=== PATIENT | male | born 1985 | race Caucasian/White ===

== ENCOUNTER 2017-05-28 11:06 | Emergency (ER) | payer BC ==
[2017-05-28 11:17] VITALS: BP 143/74; PULSE 64; TEMP 98.1; BMI 35.5
--- NOTE | 2017-05-28 12:15 | PDOC ---
Attending Attestation - Resident Resident Name: MarshalPhill - ED Attending Attestation I have performed the following: I have examined & evaluated the patient, The case was reviewed & discussed with the resident, I agree w/resident's findings & plan, Exceptions are as noted - HPI HPI: 32 yo M history HTN, GERD presents with cp since this morning. He states that he was sitting at a desk using a computer when it occurred. He states the pain is worse with twisting motion of the chest. Does not worsen with supine position. Pain is to substernal region. No N/V, SOB, sweating. No prior history of heart diseaes. - Physicial Exam PE: GENERAL: Awake, alert, and fully oriented, in no acute distress HEAD: No signs of trauma EYES: PERRLA, EOMI, sclera anicteric, conjunctiva clear ENT: Auricles normal inspection, hearing grossly normal, nares patent, oropharynx clear without exudates. Moist mucosa NECK: Normal ROM, supple, no lymphadenopathy, JVD, or masses LUNGS: Breath sounds equal, clear to auscultation bilaterally. No wheezes, and no crackles. Pain is reproducible on twisting motion of the torso. HEART: Regular rate and rhythm, normal S1 and S2, no murmurs, rubs or gallops ABDOMEN: Soft, nontender, normoactive bowel sounds. No guarding, no rebound. No masses EXTREMITIES: Normal range of motion, no edema. No clubbing or cyanosis. No cords, erythema, or tenderness NEUROLOGICAL: Cranial nerves II through XII grossly intact. Normal speech, normal gait SKIN: Warm, Dry, normal turgor, no rashes or lesions noted. - Medical Decision Making Pt is low risk for PE and ACS by clinical eval. No signs of pericarditis. No acute findings on EKG. Will send one set of basic labs and CE, will DC home if negative.
--- NOTE | 2017-05-28 12:16 | PDOC ---
History of Present Illness - General Chief Complaint: Chest Pain Stated Complaint: CHEST PAIN Time Seen by Provider: 05/28/17 12:13 - History of Present Illness Initial Comments: 05/28/17 12:23 32 yo M with h/o HTN, and GERD who presents with chest pain. Patient reports improving sharp substernal chest pain at approximately 11 am upon standing. Patient was at desk on computer at home when he stood up and experienced severe , non radiating chest pain. Pain aggravated with torso twisting motions and deep inhalation. Was not eating at time of onset. Denies N/V, fevers/chills, SOB , palpitations,lightheadedness, urinary or bowel complaints. One cup of coffee today. Tobacco cessation 3 years ago. Denies Fhx of sudden cardiac in early adult age. Past History - Past Medical History Allergies/Adverse Reactions: Allergies Allergy/AdvReac Type Severity Reaction Status Date / Time No Known Allergies Allergy Verified 05/28/17 11:12 Home Medications: Ambulatory Orders Ibuprofen 600 mg PO PRN PRN #21 tablet MDD 5 05/28/17 COPD: No HTN: Yes - Immunization History Immunization Up to Date: Yes - Suicide/Smoking/Psychosocial Hx Smoking History: Current some day smoker Have you smoked in the past 12 months: No Information on smoking cessation initiated: No Hx Alcohol Use: No Drug/Substance Use Hx: No Substance Use Type: None Review of Systems - Review of Systems Comments:: 05/28/17 12:53 GENERAL/CONSTITUTIONAL: No fever or chills. No weakness. HEAD, EYES, EARS, NOSE AND THROAT: No change in vision. No ear pain or discharge. No sore throat.- CARDIOVASCULAR: + chest pain. No shortness of breath RESPIRATORY: No cough, wheezing, or hemoptysis. GASTROINTESTINAL: No nausea, vomiting, diarrhea or constipation. GENITOURINARY: No dysuria, frequency, or change in urination. MUSCULOSKELETAL: No joint or muscle swelling or pain. No neck or back pain. SKIN: No rash NEUROLOGIC: No headache, vertigo, loss of consciousness, or change in strength/ sensation. ENDOCRINE: No increased thirst. No abnormal weight change HEMATOLOGIC/LYMPHATIC: No anemia, easy bleeding, or history of blood clots. ALLERGIC/IMMUNOLOGIC: No hives or skin allergy. *Physical Exam - Vital Signs Last Vital Signs Temp Pulse Resp BP Pulse Ox 98.1 F 64 16 143/74 100 05/28/17 11:12 05/28/17 11:12 05/28/17 11:12 05/28/17 11:12 05/28/17 11:12 - Physical Exam Comments: 05/28/17 12:55 GENERAL: Awake, alert, and fully oriented, in no acute distress HEAD: No signs of trauma, normocephalic, atraumatic EYES: PERRLA, EOMI, sclera anicteric, conjunctiva clear ENT: Hearing grossly normal, nares patent, oropharynx clear without exudates. Moist mucosa NECK: Normal ROM, supple, no lymphadenopathy, JVD, or masses LUNGS: No distress, speaks full sentences, clear to auscultation bilaterally HEART: Chest pain non reproducible with palpation.Regular rate and rhythm, normal S1 and S2, no murmurs, rubs or gallops, peripheral pulses normal and equal bilaterally. EXTREMITIES : Normal inspection, Normal range of motion, no edema. No clubbing or cyanosis. SKIN: Warm, Dry, normal turgor, no rashes or lesions noted. 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 Pain slightly improved, non radiating,and aggravated with movement. Denies N/V, fevers/chills, SOB, palpitations,lightheadedness. Physical exam benign and hemodynamically stable. Pain non reproducible with palpation. Tobacco cessation 3 years ago. Patient history and physical exam non suggestive of cardiac etiology of chest pain, but will obtain ACS/DC evaluation d/t risk factors of obesity, tobacco history, and family h/o cardiac disease. Pain most likely musculoskeletal in origin vs. GERD. ED Course: CBC, CMP, Trop, Cardiac Profile, UA EKG, CXR 05/28/17 13:35 CBC, CMP: Unremarkable Trop: Neg CXR: Unremarkable. No acute cardiopulm pathology Ibuprofen 600 mg PO 05/28/17 13:37 UA: Neg EKG: NSR with absent BRETT, STD, or TWI. Patient is stable and ready for discharge with strict return precautions. Sent Ibuprofen 600 mg PO to pharmacy. *DC/Admit/Observation/Transfer Diagnosis at time of Disposition: Chest pain at rest - Discharge Dispostion Disposition: HOME Condition at time of disposition: Stable Admit: No - Referrals Referrals: Lacey Le MD [Primary Care Provider] - - Patient Instructions Printed Discharge Instructions: DI for Atypical Chest Pain Additional Instructions: Please return to the emergency department with any new or worsening symptoms or concerns. - Post Discharge Activity - Attestations Physician Attestion: 05/28/17 13:36 I attest to the documentation provided in this note.
[2017-05-28 12:43] LABS: URINE APPEARANCE CLEAR; URINE BILIRUBIN NEGATIVE (NEGATIVE); URINE BLOOD NEGATIVE (NEGATIVE); URINE COLOR LTYELLOW; URINE GLUCOSE (UA) NEGATIVE (NEGATIVE); URINE KETONE NEGATIVE (NEGATIVE); URINE NITRITE NEGATIVE (NEGATIVE); URINE PROTEIN NEGATIVE (NEGATIVE); URINE UROBILINOGEN NEGATIVE mg/dL (0.2-1.0)
[2017-05-28 13:03] LABS: EOSINOPHIL 2.2 % (0-4.5); MCHC 33.9 g/dl (32.0-35.9); MEAN CELL VOLUME 88.5 fl (80-96); MEAN PLT VOLUME 10.2 fl (7.5-11.1); NEUTROPHILS 73.1 % (42.8-82.8); PLATELET COUNT 216 K/MM3 (134-434); RDW 13.5 % (11.9-15.9)
[2017-05-28 13:29] LABS: ALBUMIN 4.4 g/dl (3.4-5.0); ANION GAP 8 (8-16); BILIRUBIN,TOTAL 0.6 mg/dL (0.2-1.0); CALCIUM 9.5 mg/dL (8.5-10.1); CO2 26 mmol/L (21-32); CREATININE 0.9 mg/dL (0.7-1.3); GLUCOSE,RANDOM 97 mg/dL (74-106); SGPT/ALT 53 U/L (12-78); TOT PROT 8.1 g/dl (6.4-8.2)
[2017-05-28] MEDS ORDERED: IBUPROFEN 600 MG TABLET (FP) PO ONE ×2 (13:29→14:37)
[2017-05-28 13:30] LABS: ALK PHOS 67 U/L (45-117); CPK 151 IU/L (39-308); TROPONIN I 0.02 ng/ml (0.00-0.05)
[2017-05-28 13:34] LABS: SGOT/AST 33 U/L (15-37)
[2017-05-28 14:03] LABS: URINE LEUK ESTERASE Negative (NEGATIVE)
--- NOTE | 2017-05-30 14:45 | EKG ---
Test Reason : Blood Pressure : / mmHG Vent. Rate : 063 BPM Atrial Rate : 063 BPM P-R Int : 152 ms QRS Dur : 092 ms QT Int : 382 ms P-R-T Axes : 008 004 111 degrees QTc Int : 390 ms NORMAL SINUS RHYTHM NONSPECIFIC T WAVE ABNORMALITY NO PREVIOUS ECGS AVAILABLE Confirmed by COURTNEY HIGGINS MD ([id number]) on 05/30/2017 2:44:40 PM Referred By: Confirmed By:COURTNEY HIGGINS MD
== END 2017-05-28 14:51 | disposition home or self-care (01) ==
LOC: JER 11:06
DX: R07.89 Other chest pain (principal); I10 Essential (primary) hypertension; K21.9 Gastro-esophageal reflux disease without esophagitis; F17.210 Nicotine dependence, cigarettes, uncomplicated
CPT/HCPCS: 36415; 71020-TC; 80053; 81003; 82550; 82553; 84484; 85025; 93005; 93010; 99282-25

== ENCOUNTER 2019-05-13 19:36 | Emergency (ER) | payer OTHER ==
[2019-05-13 20:04] VITALS: TEMP 97.4; BMI 32.8
[2019-05-13] MEDS ORDERED: ONDANSETRON *ODT* 4 MG TABLET SL ONE (21:18)
[2019-05-13] MEDS ORDERED: ONDANSETRON *ODT* 4 MG TABLET ONE (21:27)
--- NOTE | 2019-05-13 21:59 | PDOC ---
History of Present Illness - General Chief Complaint: Alcohol intoxication Stated Complaint: CHEST PAIN Time Seen by Provider: 05/13/19 21:58 History Source: Patient Exam Limitations: No Limitations - History of Present Illness Initial Comments: Pt is a 34 yo M, with PMH of HTN and GERD, who is presenting with frontal headache, nausea/vomiting, and generalized weakness today after excessive alcohol consumption over the weekend. Pt states he was drinking ~6 beers and 6 shots of liquor over the past 2 days during a libertarian. Pt returned home today, and had generalized weakness "all over his body," and 3 episodes of NBNB vomiting with "chest discomfort" after vomiting. Pt denies any fevers/chills, vision changes, syncope, palpitations, SOB, abdominal pain, urinary symptoms, diarrhea/constipation, or leg swelling. Allergies: NKDA Social: Pt denies any cigarette or illicit drug use. Social alcohol use with binge drinking once every 1-2 months. Pt denies any recent travel or sick contacts. Surgical: no relevant history. Family: no relevant history. 05/14/19 02:11 Past History - Travel Traveled outside of the country in the last 30 days: No Close contact w/someone who was outside of country & ill: No - Past Medical History Allergies/Adverse Reactions: Allergies Allergy/AdvReac Type Severity Reaction Status Date / Time No Known Allergies Allergy Verified 02/22/18 02:53 Home Medications: Ambulatory Orders Ibuprofen 600 mg PO PRN PRN #21 tablet MDD 5 05/28/17 Metoprolol Tartrate 25 mg PO DAILY 12/11/17 COPD: No HTN: Yes - Immunization History Immunization Up to Date: Yes - Psycho Social/Smoking Cessation Hx Smoking History: Current every day smoker Have you smoked in the past 12 months: No Information on smoking cessation initiated: Yes Hx Alcohol Use: No Drug/Substance Use Hx: No Substance Use Type: None Review of Systems - Review of Systems Able to Perform ROS?: Yes Is the patient limited [place] proficient: No Constitutional: Yes: Malaise, Weakness, Weight Stable. No: Chills, Diaphoresis , Fever, Loss of Appetite HEENTM: No: Recent change in vision, Nose Congestion, Throat Pain, Throat Swelling, Difficulty Swallowing Respiratory: No: Cough, Orthopnea, Shortness of Breath Cardiac (ROS): Yes: Chest Pain. No: Edema, Irregular Heart Rate, Lightheadedness, Palpitations, Syncope, Chest Tightness ABD/GI: Yes: Nausea, Poor Appetite, Poor Fluid Intake, Vomiting, Indigestion. No: Blood Streaked Bowels, Constipated, Diarrhea, Abdominal cramping : No: Burning, Dysuria, Frequency, Pain, Urgency Musculoskeletal: No: Back Pain, Joint Pain, Muscle Pain, Muscle Weakness Integumentary: No: Rash Neurological: Yes: Headache. No: Seizure, Weakness, Unsteady Gait, Ataxia, Dizziness Psychiatric: No: Sleep Pattern Change, Change in Appetite Endocrine: No: Increased Urine, Change in Weight Hematologic/Lymphatic: No: Anemia, Blood Clots, Easy Bleeding, Easy Bruising All Other Systems: Reviewed and Negative *Physical Exam - Vital Signs Last Vital Signs Temp Pulse Resp BP Pulse Ox 97.4 F L 104 H 20 146/98 100 05/13/19 19:58 05/13/19 19:58 05/13/19 19:58 05/13/19 19:58 05/13/19 19:58 - Physical Exam Comments: Tachycardic (low 100s), pt afebrile. Pt in NAD, obese body habitus. Pt appears ill, but not toxic. Pt alert and oriented x3. 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 No midline spinal tenderness, step-offs, or crepitus. Head normocephalic, atraumatic. Eyes PERRLA, EOMI. Oropharynx without erythema or exudates, no LAD b/l. No nasal congestion. Hearing intact. Clear heart sounds, S1/S2, no JVD, b/l pedal edema, or heart murmur. Clear lung sounds, no respiratory distress, wheezes, crackles, or accessory muscle use. No reproducible chest wall TTP. No abdominal or CVA tenderness to palpation, no rebound, no guarding. Abdomen soft, non-distended, and with normoactive bowel sounds. Skin without jaundice or rash. 05/14/19 02:14 ED Treatment Course - LABORATORY CBC & Chemistry Diagram: 05/13/19 23:38 05/13/19 23:38 - Medications Given in the ED: ED Medications Discontinued Medications Generic Name Dose Route Start Last Admin Trade Name Freq PRN Reason Stop Dose Admin Ondansetron HCl 8 mg 05/13/19 21:18 05/13/19 21:33 Zofran Odt - SL 05/13/19 21:19 8 mg ONCE ONE Administration Medical Decision Making - Medical Decision Making Pt was seen at bedside, also will be seen by attending Dr. Hogan. Pt presenting with headache, n/v, likely 2/2 to excessive alcohol use, will evaluate for ACS vs electrolyte imbalances vs rhabo. Provided 1 L IV NS, 8 mg PO zofran, 20 mg IV pepcid for improvement of nausea, hydration, and reflux. Will continue to reassess pt and monitor for symptomatic improvement. ECG: Sinus tachycardia (HR 104, HI 172, QRS 92, QTc 454). TWI in V2. No significant changes from prior ECG (02/22/2018) 05/14/19 02:15 CBC and CMP WNL Trop <.02 with no significant ECG abnormalities Pt states symptoms greatly improved after interventions. Tolerated PO challenge and now ambulatory in ED Chest x-ray with no acute pathology Pt can d/c to home with girlfriend driving. Strict return precautions with pt understanding. Will f/u with PCP. 05/14/19 02:17 Discharge - Discharge Information Problems reviewed: Yes Clinical Impression/Diagnosis: Alcohol abuse, Hangover without complication Condition: Improved Disposition: HOME - Admission No - Follow up/Referral Referrals: Guero Yang MD [Primary Care Provider] - - Patient Discharge Instructions Patient Printed Discharge Instructions: How to Beat a Hangover, DI for Alcohol Abuse Additional Instructions: You were seen in the ER today for vomiting and headache after drinking alcohol. The results of your labs and imaging today were normal. Please follow-up with your primary care doctor within 1-2 days to discuss your visit and make sure your symptoms have improved. Please return to the ER if you have any worsening pain, development of fevers or chills, loss of consciousness, inability to tolerate food or fluids, or any other concerns. - Post Discharge Activity
[2019-05-13] MEDS ORDERED: ACETAMINOPHEN 1000 MG/100 ML VIAL (NON FORMULARY) IVPB ONE (22:10)
[2019-05-13] MEDS ORDERED: SODIUM CHLORIDE 1,000 ML IV STA (22:20)
[2019-05-13] MEDS ORDERED: FAMOTIDINE 20 MG/50 ML IVPB 20 MG/50 ML MG IVPB ONE ×2 (22:20→22:45)
[2019-05-13] MEDS ORDERED: SODIUM CHLORIDE 2,000 ML IV STA (22:21)
[2019-05-13 23:49] LABS: HEMATOCRIT 41.5 % (35.4-49); HEMOGLOBIN 14.2 GM/dL (11.7-16.9); LYMPH % 16.6 % (8-40); MCH 30.5 pg (25.7-33.7); MCHC 34.2 g/dl (32.0-35.9); MEAN CELL VOLUME 89.1 fl (80-96); MEAN PLT VOLUME 10.1 fl (7.5-11.1); MONO % 6.7 % (3.8-10.2); NEUT % 74.7 % (42.8-82.8); PLATELET COUNT 228 K/MM3 (134-434); RBC 4.66 M/mm3 (4.00-5.60); RDW 13.5 % (11.9-15.9); WHITE BLOOD COUNT 8.1 K/mm3 (4.0-10.0)
[2019-05-13 23:59] LABS: INR 1.13 (0.83-1.09); PROTHROMBIN TIME (PATIENT) 13.4 SEC (9.7-13.0)
[2019-05-14 00:22] LABS: ALBUMIN 4.3 g/dl (3.4-5.0); ALK PHOS 60 U/L (45-117); ANION GAP 11 MMOL/L (8-16); BILIRUBIN,TOTAL 0.8 mg/dL (0.2-1); BLOOD UREA NITROGEN 14.1 mg/dL (7-18); CALCIUM 9.4 mg/dL (8.5-10.1); CHLORIDE 101 mmol/L (98-107); CO2 26 mmol/L (21-32); GLUCOSE,RANDOM 99 mg/dL (74-106); LIPASE 85 U/L (73-393); POTASSIUM 3.9 mmol/L (3.5-5.1); SGOT/AST 26 U/L (15-37); SGPT/ALT 33 U/L (13-61); SODIUM 138 mmol/L (136-145); TOT PROT 7.7 g/dl (6.4-8.2)
[2019-05-14] MEDS ORDERED: MAG HYDROX/AL HYDROX/SIMETH 30 ML UNIT-DOSE CUP PO ONE (00:58)
[2019-05-14] MEDS ORDERED: LIDOCAINE VISCOUS 2% ORAL/TOP 20 ML UNIT-DOSE CUP MM ONE (00:58)
[2019-05-14] MEDS ORDERED: LIDOCAINE VISCOUS 2% ORAL/TOP 20 ML UNIT-DOSE CUP ONE (01:40)
[2019-05-14] MEDS ORDERED: MAG HYDROX/AL HYDROX/SIMETH 30 ML UNIT-DOSE CUP ONE (01:45)
[2019-05-14 04:08] VITALS: BP 142/69; PULSE 82
--- NOTE | 2019-05-15 11:25 | EKG ---
Test Reason : Blood Pressure : / mmHG Vent. Rate : 104 BPM Atrial Rate : 104 BPM P-R Int : 172 ms QRS Dur : 092 ms QT Int : 346 ms P-R-T Axes : 058 037 055 degrees QTc Int : 454 ms SINUS TACHYCARDIA OTHERWISE NORMAL ECG WHEN COMPARED WITH ECG OF 22-FEB-2018 02:51, QT HAS LENGTHENED Confirmed by MD Anderson, Raf ([id number]) on 05/15/2019 11:25:34 AM Referred By: Confirmed By:Raf Barron MD
== END 2019-05-14 01:50 | disposition home or self-care (01) ==
LOC: JER 19:36
PROC: 3E033GC Introduction of Other Therapeutic Substance into Peripheral Vein, Percutaneous Approach (ICD-10-PCS; principal; 2019-05-13)
DX: F10.120 Alcohol abuse with intoxication, uncomplicated (principal); Y90.9 Presence of alcohol in blood, level not specified
CPT/HCPCS: 36415; 71046-TC-FY; 80053; 82550; 82553; 83690; 84484; 85025; 85610; 93005; 93010; 99284-25; J7030; Q0162

== ENCOUNTER 2022-10-10 10:37 | Emergency (ER) | payer OTHER ==
[2022-10-10 10:48] VITALS: BP 135/90; PULSE 69; RESP 16; TEMP 98.3; BMI 31.3
[2022-10-10] MEDS ORDERED: MAG HYDROX/AL HYDROX/SIMETH 30 ML UNIT-DOSE CUP PO ONE (11:47)
[2022-10-10] MEDS ORDERED: FAMOTIDINE 20 MG TABLET PO ONE (11:48)
[2022-10-10] MEDS ORDERED: MAG HYDROX/AL HYDROX/SIMETH 30 ML UNIT-DOSE CUP ONE (12:17)
[2022-10-10] MEDS ORDERED: FAMOTIDINE 20 MG TABLET ONE (12:17)
== END 2022-10-10 16:01 | disposition home or self-care (01) ==
LOC: JER 10:37
DX: R07.9 Chest pain, unspecified (principal); R20.2 Paresthesia of skin
CPT/HCPCS: 36415; 71046-TC-FY; 82962; 84484; 93005; 93010; 99285-25